=== PATIENT | male | born 1960 ===

== ENCOUNTER 2025-02-01 15:55 | Outpatient (CLI) | payer OTHER, SELFPAY ==
--- NOTE | 2025-02-01 08:15 | DI.RAD_ITS ---
Exam(s) XR PELVIS AP EXAM: XR PELVIS AP CLINICAL HISTORY: LEFT HIP PAIN. TECHNIQUE: 2D digital imaging was performed. COMPARISON: DX HIP/PELVIS from 07/19/2023 FINDINGS: Single AP view: Again noted is a previously described hardware in the left hip acetabulum. This hardware remain stab le no obvious loosening nor evidence of osteomyelitis. However, there has been further advancement of the severe degenerative changes in the left hip joint. There is [id number] narrowing evidence superiorly and increase in number of degenerative subartic ular cysts. Also some increase in dystrophic calcification off the superolateral aspect of the joint . Opposite-right hip appears unremarkable. IMPRESSION: Stable left hip region hardware but advancing now severe osteoarthritic degenerative changes in the l eft hip. DATA REPOSITORY: RADIATION DOSE DELIVERED:
== END 2025-02-01 15:56 | disposition home or self-care (01) ==
LOC: DIORS 15:56
PROVIDERS: PCP Family Medicine; Visit Provider Student in an Organized Health Care Education/Training Program
DX: M16.12 Unilateral primary osteoarthritis, left hip (principal)
CPT/HCPCS: 72170

== ENCOUNTER 2025-04-09 04:34 | Outpatient (CLI) | payer OTHER, SELFPAY ==
[2025-04-09 12:59] LABS: HCT 47.4 % (40.0-50.0); HGB 15.7 g/dL (13.5-17.5); MCH 32.6 pg (27.0-33.0); MCHC 33.1 % (32.0-36.0); MCV 99 fL (80-95); MPV 8.8 fL (8.0-11.0); Platelet Count 229 10^3/uL (130-400); RBC 4.81 10^6/uL (4.36-5.78); WBC 6.96 10^3/uL (4.4-10.8)
[2025-04-09 13:42] LABS: Anion Gap 5.6 mmol/L (3-11); BUN 17 mg/dL (7-18); CO2 29.4 mmol/L (21.0-32.0); Calcium 9.2 mg/dL (8.5-10.1); Chloride 104 mmol/L (98-107); Glucose 78 mg/dL (74-106); Potassium 4.5 mmol/L (3.5-5.1); Sodium 139 mmol/L (136-145)
== END 2025-04-09 04:35 | disposition home or self-care (01) ==
LOC: LBO 04:34
PROVIDERS: PCP Family Medicine; Visit Provider Student in an Organized Health Care Education/Training Program
DX: M12.552 Traumatic arthropathy, left hip (principal); Z01.818 Encounter for other preprocedural examination
CPT/HCPCS: 36415; 80048; 85027

== ENCOUNTER 2025-04-17 05:55 | Day surgery (SDC) | payer OTHER, SELFPAY ==
[2025-04-17] VITALS (13 sets, daily range): BP systolic 91–138; BP diastolic 61–96; PULSE 59–70; RESP 14–18; TEMP 36–36.8; O2SAT 95–99; BMI 32.7
--- NOTE | 2025-04-17 06:35 | W.ANESPRE ---
General Info Date of Service Date Performed: 04/17/25 Height: 5 ft 11 in Weight: 106.5 kg Body Mass Index (BMI): 32.7 Surgical Procedure: Operation Date: 04/17/25 07:50 Proposed Procedure Side Surgeon p Hip Total Hip Anterior, ACTIS* Left Von Muhammad MD Meds Allergies and Home Medications Allergies Allergy/AdvReac Type Severity Reaction Status Date / Time cat dander Allergy Unknown Other (See Verified 04/17/25 06:25 Comment) dog dander Allergy Unknown Other (See Verified 04/17/25 06:25 Comment) Home Medication ?Medication ?Instructions ?Recorded acetaminophen 500 mg tablet 1,000 mg PO Q6H PRN 04/19/24 apixaban 5 mg tablet (Eliquis) 5 mg PO BID 04/19/24 ascorbate calcium (vitamin C) 500 500 mg PO DAILY 04/19/24 mg tablet cholecalciferol (vitamin D3) 10 10 mcg PO DAILY 04/19/24 mcg (400 unit) capsule folic acid 1 mg tablet 1 mg PO DAILY 04/19/24 hydroxyzine HCl 25 mg tablet 25 mg PO TID PRN 04/19/24 magnesium 250 mg tablet 250 mg PO DAILY 04/19/24 methotrexate (PF) 25 mg/0.5 mL 50 mg subcut QWEEK 04/19/24 subcutaneous auto-injector metoprolol succinate 50 mg 50 mg PO DAILY 04/19/24 tablet,extended release 24 hr (Toprol XL) multivitamin 1 tab PO DAILY 04/19/24 moringa 04/17/25 Current Visit Medications: Current Medications Generic Name Dose Route Start Last Admin Trade Name Christiane PRN Reason Stop Dose Admin Acetaminophen 1,000 mg 04/17/25 06:00 Acetaminophen 500 Mg Tab PO 04/17/25 23:59 PREOP YOGI Celecoxib 400 mg 04/17/25 06:00 Celecoxib 200 Mg Cap PO 04/17/25 23:59 PREOP YOGI Ringer's Solution 1,000 mls @ 80 mls/hr 04/17/25 06:00 IV 04/17/25 23:59 INFUSION YOGI Cefazolin Sodium/Dextrose 2 gm in 50 mls @ 100 mls/hr 04/17/25 06:00 Ancef Duplex IVPB 04/17/25 23:59 PREOP YOGI Tranexamic Acid/Sodium Chloride 1,000 mg in 100 mls @ 600 mls/hr 04/17/25 06:00 IVPB 04/17/25 23:59 PREOP YOGI IV Miscellaneous Supplies 1 each 04/17/25 06:00 Iv Access IV 04/17/25 23:59 DIRECTED YOGI Sodium Chloride 0 ml 04/17/25 06:00 Normal Saline Flush 10 Ml Syr IV 04/17/25 23:59 PRN PRN Sodium Chloride 0 ml 04/17/25 06:00 Normal Saline 10 Ml Vial IJ 04/17/25 23:59 DIRECTED PRN Sterile Water 0 ml 04/17/25 06:00 Water,Injection,Sterile 10 Ml Vial IJ 04/17/25 23:59 DIRECTED PRN PFSH Active Problems Active Problems: Problem Status Onset Code Traumatic arthritis of left hip Acute M12.552 Osteoarthritis of left hip Acute M16.12 Polymyalgia rheumatica Acute M35.3 Obesity Chronic E66.9 Hypertension Chronic I10 Afib Chronic I48.91 Medical History Medical History History of cardioversion 02/02/25, per pt. states followed up with senior data integration developer 04/14/25 Surgical History Surgical History History of cardiac radiofrequency ablation 2010-Pt. states he is getting another one on 05/2025 Hx of carpal tunnel repair Tobacco Smoking/Tobacco Use Status: Former Tobacco Use Passive smoking exposure: No Alcohol Alcohol Intake: current Alcohol intake frequency: a few times a week Alcohol type: beer Substance Use Substance use: Occasionally Substance use type: does not use and marijuana Details: edibles Vital Signs and Lab Results Lab Results Blood Type / Crossmatch: No Data to Display Complete Blood Count: White Blood Count 6.96 10^3/uL (4.4-10.8) 04/09/25 12:25 Red Blood Count 4.81 10^6/uL (4.36-5.78) 04/09/25 12:25 Hemoglobin 15.7 g/dL (13.5-17.5) 04/09/25 12:25 Hematocrit 47.4 % (40.0-50.0) 04/09/25 12:25 Platelet Count 229 10^3/uL (130-400) 04/09/25 12:25 Complete Metabolic Panel: Sodium 139 mmol/L (136-145) 04/09/25 12:25 Potassium 4.5 mmol/L (3.5-5.1) 04/09/25 12:25 Chloride 104 mmol/L (98-107) 04/09/25 12:25 Carbon Dioxide 29.4 mmol/L (21.0-32.0) 04/09/25 12:25 BUN 17 mg/dL (7-18) 04/09/25 12:25 Creatinine 1.0 mg/dL (0.70-1.30) 04/09/25 12:25 Est GFR (CKD-EPI 2020) 85.10 (mL/min/1.73m2) 04/09/25 12:25 Calcium 9.2 mg/dL (8.5-10.1) 04/09/25 12:25 Glucose 78 mg/dL (74-106) 04/09/25 12:25 Liver Function Panel: No Data to Display Coagulation Panel: No Data to Display Cardiac Panel: No Data to Display Arterial Blood Gas: No Data to Display Venous Blood Gas: No Data to Display Pancreas Panel: No Data to Display Thyroid Panel: No Data to Display Infectious Disease: No Data to Display Blood Cultures: No Data to Display Toxicology Panel: No Data to Display Anesthesia Assessment and Plan Anesthesia History Personal History: No History of Anesthesia Complications Family History: No Family History of Anesthesia Complications Exercise Tolerance Exercise Tolerance: Metabolic Equivalents>4 Pertinent Negatives Pertinent Negatives: No Symptoms of GERD, No Major Pulmonary Symptoms or Complaints and No History of CVA/TIA Cardiac & Pulmonary Exam Cardiac Exam: Normal S1/S2 Heart Sounds Pulmonary Exam: Clear Bilateral Breath Sounds and No cough or Cold Implantable Cardiac Device Does patient have a Pacemaker or an ICD?: No Airway Exam Known Difficult Airway: No Mallampati Class: 2 Mouth Opening: Normal (> 3cm) Thyromental Distance: Greater than 3 cm Neck Range of Motion: Limited ROM Neck Circumference: Normal Teeth Condition: Normal Dentition Airway Comments: Exposed root #[id number] ASA Classification ASA Score: ASA 2 Emergency Case?: No NPO Status NPO Status: NPO Clears >2 hours, Solids >8 hours Anesthesia Plan Resuscitation Status: Full Code Anesthesia Technique: Spinal Anesthesia Airway Planned: Natural Airway Pain Management: Intrathecal Analgesia Monitors Used: Standard Monitors
[2025-04-17] MEDS: Acetaminophen 500 MG TAB 1000 MG PO (06:39)
[2025-04-17] MEDS: Celecoxib 200 MG CAP 400 MG PO (06:39)
--- NOTE | 2025-04-17 07:11 | PDOC.DSDIS_ITS ---
Date of service: 04/17/25 Discharge Plan Disposition Patient Disposition: Home Condition: Good Discharge Details Reason For Visit: Left hip DJD Attending Provider: Von Muhammad Primary Care Provider: JOHN HAMILTON Home Meds and New Rx's Prescriptions: New acetaminophen 500 mg tablet 1,000 mg PO Q8H PRN Qty: 90 0RF Rx Instructions: Take two tablets up to every 8 hours as needed for pain celecoxib [Celebrex] 200 mg capsule 200 mg PO BID PRNQty: 60 0RF Rx Instructions: Take one tablet twice daily for pain and inflammation docusate sodium [Colace] 100 mg capsule 100 mg PO BID Qty: 28 0RF pantoprazole 40 mg tablet,delayed release (DR/EC) 40 mg PO DAILY Qty: 14 0RF dexamethasone 4 mg tablet 4 mg PO DAILY Qty: 2 0RF Rx Instructions: Take one tablet once daily for two days oxycodone 5 mg tablet 5 mg PO Q6H PRNQty: 12 0RF Rx Instructions: Take one tablet up to every 6 hours as needed for severe postoperative pain Continued cholecalciferol (vitamin D3) 10 mcg (400 unit) capsule 10 mcg PO DAILY folic acid 1 mg tablet 1 mg PO DAILY methotrexate (PF) 25 mg/0.5 mL auto-injector 50 mg subcut QWEEK Eliquis 5 mg tablet 5 mg PO BID multivitamin Tablet 1 tab PO DAILY metoprolol succinate [Toprol XL] 50 mg tablet extended release 24 hr 50 mg PO DAILY ascorbate calcium (vitamin C) 500 mg tablet 500 mg PO DAILY magnesium 250 mg tablet 250 mg PO DAILY hydroxyzine HCl 25 mg tablet 25 mg PO TID PRN moringa Discontinued acetaminophen 500 mg tablet 1,000 mg PO Q6H PRN Discharge Instructions Additional Instructions: Total Hip Discharge Instructions Activity: The most important activity is to walk. You should try to take short walks a few times a day. You have no restrictions on movement or positioning, but do not try to force what you do. You will find some stiffness and weakness with hip flexion (lifting your knee). Do not try to strengthen this too early, continue to practice walking and stairs and this will come. - Outpatient physical therapy can be helpful to help return you to a normal gait and improve your flexibility and strength. This can start around 2 weeks. For some patients, it?s not necessary. Usually this is determined at the time of discharge or at the first post-operative visit. - You should wear the EVETTE hose on both legs for 2 weeks. Dressing: Keep the surgical dressing in place for at least one week. After the first week it may be removed and replace with light gauze and tape or nothing. It may get wet after 3 days but avoid soaking the dressing. If it gets wet, just lightly pat dry. It is important to always keep some gauze between skin folds, especially when you are sitting. Spend some time with the wound exposed when you are lying flat as the incision does wrinkle onto itself. Medications: - You should take Tylenol and an anti-inflammatory Celebrex as your primary pain control medications. If the Celebrex is too expensive or not covered, please call the office for another alternative (Advil/Ibuprofen or Naproxen/Aleve). - You have been prescribed a stronger pain medication Oxycodone for breakthrough pain, take as needed as prescribed. - You have also been prescribed a stomach acid reduction agent Pantoprozole to help reduce stomach acid and reflux. - You have also been prescribed Decadron to help with post-operative nausea and pain. You will take this for two days starting tomorrow. - You will resume your baseline anticoagulation, Apixaban, tomorrow on 04/18/25 for DVT prevention. - If you have constipation you should take Colace (which has been prescribed) or Miralax (which is available [id number]). It takes most people 3-4 days to have a bowel movement. Follow-up: 2 weeks If you have any acute concerns or questions, please do not hesitate to contact the office at [phone]. You may contact Dr. Muhammad with any questions after hours through the hospital at [phone] or on his cell phone at [phone]. Referrals: Von Muhammad MD [ [facility] STAFF PHYSICIAN] - Equipment/Supplies: Walker Activity:: Elevate Remove Dressings/Wound Care:: Do Not Remove Shower/Bathe:: Cover Diet:: As Tolerated Discharge Orders Discharge Orders: Discharge Order (Routine); Ordered 04/17/25 Ordered By: Meghana Ureña
[2025-04-17] MEDS: Lactated Ringers 1,000 ML 80 ML IV (07:15)
--- NOTE | 2025-04-17 08:08 | ROE_ITS ---
Operative Note Operative Note PRE-OP DIAGNOSIS: Left Hip Post-Traumatic Osteoarthritis POST-OP DIAGNOSIS: same PROCEDURE: Left Anterior Total Hip Arthroplasty with Intraoperative Navigation SURGEON: Von Muhammad HI LO DRIVER: Meghana Ureña ANESTHESIA TYPE: Spinal Refer to Anesthesia Record PATHOLOGY: none sent TOURNIQUET TIME: 0 COMPLICATIONS: None Patient was transported to: PACU Patient's condition: stable Implants: 1. Depuy [place] Acetabular Component, 56mm 2. Depuy Acetabular Liner, [id number] 3. Depuy Actis Standard Collared Femoral Stem, Size 6 4. Depuy Altrx Ceramic Femoral Head, Size 36+8.5mm Indications: I have seen Vincent in clinic for symptoms of hip arthritis, confirmed with radiographic findings. Vincent has exhausted nonoperative methods and was having significant limitations in daily function and desired better function and less pain. I discussed the technical details of a hip replacement. I explained the risks of the procedure to include, but not limited to, bleeding, infection, pain, stiffness, fracture, damage to nerves and vessels, damage to muscles and tendons, loosening, instability, leg length inequality, need for repeat procedure, blood clot and cardiopulmonary demise. Despite these risks, he elected to proceed. Findings: There was significant signs of arthritis throughout the hip with large osteophytes throughout and scarring posteriorly. Procedure Description: Vincent was greeted in the preoperative holding area where the correct side was identified and marked. The consent was reviewed with the patient and signed. The history and physical was updated. All questions were answered. Vincent was taken back to the operating room. A spinal anesthestic was then administered. The feet were wrapped with cast padding and Coban and then placed into the boot liners and then into the boots. Care was taken to protect the skin and make sure the heels were fully down and the boots were stable. The patient was then positioned onto the HANA table. Both legs were held in a neutral position. SCDs were applied. The patient was then slid down onto a peroneal post. Prophylactic antibiotics in the form of Cefazolin were administered. 1g of Tranxemic Acid was given intravenously within 30 minutes of incision. The left leg was then prepped with Chloraprep and draped in a standard fashion. A second prep with Chloraprep was performed prior to placement of a shower-curtain type drape with Iodine impregnated skin protection. A timeout to confirm correct identity, side and site, procedure, allergies, anesthesia, and medical concerns was performed. An obliquely oriented incision was made starting lateral to the ASIS and running distal over the Tensor Fascia Odilia (TFL) muscle belly toward the fibular head, approximately 10cm. The skin and soft tissue was dissected sharply, through Stella?s fascia, and to the fascia of the TFL. With the fascia and superior border of the IT band identified, the fascia was incised with a new knife just above any perforators from the IT band. The TFL muscle belly was bluntly dissected away from the fascia and moved laterally. The fat between TFL and rectus was identified to ensure the dissection was not within the TFL. Blunt dissection created space between abductors and the capsule and retractor was placed over the lateral femoral neck. The fibers of the rectus femoris tendon were identified and these were freed from the anterior capsule. A second cobra retractor was placed around the medial femoral neck. The TFL was further retracted laterally to show the deep fascia. Careful dissection through this layer identified three main crossing vessels of the lateral femoral circumflex. These were cauterized in multiple locations and then cut without any noticeable bleeding. The TFL was further released bluntly from the deep fascia to expose anterior hip capsule and fat The soft tissue orthopaedic retractor was then placed beneath the TFL and against sartorius and medial soft tissues to protect and retract the soft tissues. A T-capsulotomy was then performed starting at the superior lateral acetabulum and moving distally to the intertrochanteric ridge. These capsular flaps were tagged with a No. 1 Vicryl and elevated from within. The capsular flaps were released to the shoulder of the lateral neck and to the lesser trochanter to give excellent visualization of the proximal femur. A neck osteotomy was performed using an oscillating saw based on preoperative templates. This cut started in the shoulder and of the lateral neck and exited medially. The saw was at all times directed medially to avoid injury to the greater trochanter. Gross traction was applied to the leg and the osteotomy opened. The femoral head was removed with a corkscrew, making sure to protect the TFL on its exit. Traction was released after head removal. This was measured on the back table to determine the starting reamer size. Portions of the rectus obscuring visualization were minimally elevated off the superior acetabulum. An anterior retractor was placed over the anterior wall between capsule and labrum and attached to the Gripper retraction system. The femur was rotated to 90 degrees and medial capsule was fully released until the lesser trochanter was palpable and visible; the femur was returned to 30 degrees. A posterior retractor was placed similarly between capsule and labrum. This provided excellent visualization. The contents of the cotyloid fossa were removed with electrocautery and the labrum was removed with a knife. There was a notable floor osteophyte. There was significant chondromalacia of the superior acetabulum. Acetabular reaming began with a 52mm reamer. This first reaming was directed anterior to posterior and medial to get down to the true floor. This was inspected and reamed until the true floor was reached. The anterior retractor was then released and entry and exit was provided by traction on the capsular flaps. I then reamed sequentially up to a 56mm reamer where good fit was obtained. The larger reamers were oriented based on anatomical reference of the anterior and lateral cunningham to ensure proper abduction and anteversion. Positioning and size was confirmed with the fluoroscopy. A 56mm Depuy [place] acetabular component was selected. The acetabulum was reamed around the periphery with the selected acetabular size to prevent a rim fit. The deep tissues were irrigated. The acetabular component was then impacted in a position of about 40-45 degrees of abduction and 15-20 degrees of anteversion, using the patient?s anatomy as the ultimate landmark. Fluoroscopy was used to confirm this. There was excellent anthropology professor of the acetabular component and the inserting handle was removed. The acetabular liner, Depuy [id number] polyethylene liner, was inserted and lined up with the tines of the acetabular component. There was no soft tissue interposition. The liner was then impacted into position and confirmed to be well-seated. A portion of the inna-articular cocktail was then injected around the acetabulum into the capsule and periosteum. This cocktail consisted of 123mg of Ropivacaine, 0.25mg of Epinephrine, 0.04mg of Clonidine, and 15mg of K etorolac, diluted to 50cc. The leg was rotated to 120 degrees. Any remaining medial capsule was released until the lesser trochanter was easily palpable. A retractor was placed medially. The lateral capsule was further released into the shoulder to allow access to the greater trochanter. A Cardenas retractor was placed over the greater trochanter which allowed the trochanter to flip in front of the capsule for excellent exposure. The leg was brought down into maximal extension and 20 degrees of adduction while ensuring there was no impingement on the acetabulum. Any remnant capsule within the trochanter was released. Piriformis and obturator externis were identified and protected. There was excellent access to the proximal femur. The lateral neck remnant was removed with a rongeur. A blunt canal probe was used to identify the canal and trajectory for later broaching. A box osteotome initiated the broach course. A small curved rasp and a curved curette were used to work laterally. Broaching then began with a starter Actis broach. This was inserted manually around the trochanter and into the canal before mallet blows. The broach was seated to the neck cut level based on the neck cut and the preoperative template. Sequential broaching was continued with the Fancyse pneumatic broaching device until a tight fit was obtained with good rotational control of the femur. A trial high offset neck was inserted along with a +5 trial head. The leg was brought out of extension and adduction and then reduced with traction and internal rotation. The leg was stable anteriorly in a position of 30 degrees of extension and 90 degrees of external rotation. Fluoroscopy was used to ensure there was no fracture and the stem was seated well. Leg lengths were checked with an AP pelvis and pelvic reference points. [employer] navigation system was used to confirm appropriate positioning and leg length and offset. This seemed to slightly overcorrect the total loss that in under correct leg length. Therefore, the stem was increased to size 6 with a +8.5 head to maintain offset correction and add leg length. Once content with the desired offset and leg lengths, the leg was brought back into extension, external rotation and adduction. The periosteum and surrounding tissue was injected with remaining portion of the inna-articular cocktail. The proximal femur was irrigated as well as the deep tissues. The [employer] Actis standard collared stem, size 6, was then manually inserted into the proximal femur making sure to control rotation. It was then malleted into position with light blows, giving breaks to allow bone expansion and decrease risk of fracture. The selected Depuy Altrx Ceramic Head, size 36+8.5mm, was then placed onto the clean and dry trunnion and secured with impaction onto the tapered fit. The leg was brought back out of extension and adduction and reduced with traction and internal rotation. Stability was confirmed with no shuck at 90 degrees of external rotation and 30 degrees of extension. No impingement through range of motion arc. Final x-ray images were obtained with fluoroscopy to confirm adequate positioning and no intraoperative fracture. The deep tissues were thoroughly irrigated with Surgiphor, betadine solution. This was allowed to sit in the wound for 3 minutes before being thoroughly irrigated out with normal saline. The capsule was then reapproximated with the previously placed sutures and the indirect head of the rectus was inspected and reapproximated with a #1 Vicryl. The TFL fascia was finally closed with a No. 2 Stratafix, barbed suture. Deep tissues were then reapproximated with 0 Vicryl and a running 2-0 Vicryl. The skin was closed with a running 4-0 Monocryl in a subcuticular fashion. This was reinforced with skin glue. A Mepilex silver dressing was applied. At the end of the case, all counts were correct. Vincent was transferred to the hospital bed without difficulty and suffering no apparent complication. He has a good prognosis. Physical therapy will start today and without restrictions, weight-bearing as tolerated. His home dose of Apixaban will be used for DVT prophylaxis. Date of Procedure: 04/17/25
[2025-04-17] MEDS: ceFAZolin 2 GM/50 ML BAG IVPB (08:15)
[2025-04-17] MEDS: TRANEXAMIC ACID/SOD. CHL. 1,000 MG/100 ML BAG 600 MG IVPB (08:20)
--- NOTE | 2025-04-17 09:20 | DI.RAD_ITS ---
Exam(s) XR HIP LT IN OR EXAM: XR HIP LT IN OR CLINICAL HISTORY: (1) Osteoarthritis of left hip. TECHNIQUE: 2D and realtime digital imaging was performed. COMPARISON: CR XR PELVIS AP from 02/01/2025 FINDINGS: Hard copy images show placement of a left hip prosthesis. The alignment appears satisfactory Please see procedure note for details. Fluoro time: 28.4seconds RADIATION DOSE DELIVERED: Ka,r=4.3 mGy
[2025-04-17] MEDS: fentaNYL 100 MCG/2 ML VIAL IVP ×2 (10:16→10:26)
[2025-04-17] MEDS: oxyCODONE 5 MG TAB PO (11:16)
[2025-04-17] MEDS: Tranexamic Acid 650 MG TAB 1300 MG PO (11:46)
--- NOTE | 2025-04-17 12:45 | W.ANESPOSTOP ---
Postoperative Evaluation Date, Time and Location Date Performed: 04/17/25 Time Performed: 12:30 Patient Location: Day Surgery Unit Vital Signs Most Recent Imported Vital Signs: Most Recent Vital Signs Temp Pulse Resp BP Pulse Ox 36.3 C L 67 18 121/79 98 04/17/25 11:57 04/17/25 11:57 04/17/25 11:57 04/17/25 11:57 04/17/25 11:57 Pain Score Most Recent Pain Score: Most Recent Pain Score Pain Level 3 04/17/25 11:57 Assessment Mental Status: Awake (Alert & Oriented to Patient Baseline) Airway and Respiratory Function: Patent airway with normal (patient baseline) respiratory exam Cardiovascular Function: Hemodynamically Stable Hydration Status: Adequately Hydrated Nausea & Vomiting: No Nausea or Vomiting Pain: Pain is tolerable per patient Peripheral Nerve Block: Regional nerve block not resolved at time of post operative discharge Teaching Patient Teaching: Discussed Safe Use of Pain Medication Given Recent Anesthesia and Discussed Safe Use of Pain Medication Given Likely or Known ALISSON
--- NOTE | 2025-04-17 13:04 | PT.INIE ---
PT Notes Visit Reasons: Left hip DJD Physical Therapy Day Surgery Initial Evaluation Date: 04/17/2025 Referring Doctor: Meghana Ureña NUCLEAR CARDIOLOGY TECHNOLOGIST, Dr Muhammad PT Orders: PT CONSULT: s/p Ortho surgery Precautions: WBAT LLE Patient Profile/Admitting Diagnosis: Pt is a 64 yo male presenting s/p elective Left YOLIE under spinal anesthetic. Post op uncomplicated. PMHX: HTN, Traumatic arthritis left hip , OA, PMR, obesity, Afib, Social History/Home Situation: Patient resides in two-story home with his . Patient has 2 steps to enter with grab bar on door frame through his garage. Patient has flight of stairs with 2 rails to his bedroom. 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 He is independent with ADLs, finances, meal prep, driving, shopping. able to help as needed Equipment Owned/DME: Crutches, patient issued and fitted for FWW provided by [employer] Subjective: Patient reports he is feeling well asking about using his riding tractor. Patient educated to follow-up with MD in 2 weeks to discuss use of riding tractor. Objective: [] General Observation: Male semireclined on stretcher with ice to left hip present Mental Status: Alert and oriented x 4, cooperative, able to follow directions, agreeable to participate Pain: Initially 3/10, reduced to 2/10 after ambulation ROM: [] BUE: WNL Right Lower Extremity: WNL Left Lower Extremity: Hip flexion 0 to 92 degrees, abduction 0 to 10 degrees, internal rotation to neutral, knee WNL, ankle dorsiflexion to neutral Strength: [] Right Upper Extremity: 5/5 Left Upper Extremity: 5/5 Right Lower Extremity: 5/5 Left Lower Extremity:Hip flexion: 3 -/5; hip abduction: 3 -/5; hip extension: 3 -/5; knee extension: >/= to 3/5; knee flexion: >/= to 3/5 ankle DF: >/= to 3/5 ; ankle PF: >/= to 3/5 Sensation: Intact Bed Mobility/Transfers: [] Supine to sit independent Sit to stand supervision with cues for hand placement Stand to sit supervision with cues for hand placement Bed to chair supervision with FWW Gait: SBA with FWW 150 feet including turns on level surfaces and obstacle management. Patient initially demonstrating circumduction of left lower extremity to advance after approximately 25 feet patient able to initiate left lower extremity swing phase with hip flexion. Stairs: 5 steps x 2 with bilateral rail SBA with cues for sequencing step to pattern Balance: [] Static Sitting: Normal Dynamic Sitting: Good minus Static Standing: Good Dynamic Standing: Fair plus Special Tests: [] Mobility Limitations Standardized Measure [] [facility] AM-PAC 6 clicks Basic Mobility Inpatient Short Form: [] Raw Score: 21 CMS Score: 28.97% Informed Consent/Education: Patient instructed in purpose of PT consult. Patient education provided for benefits of utilizing FWW versus crutches at this time. 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 Treatment: 00679 Packet containing YOLIE exercise protocol has been given to patient. Education and training on initial set of exercises that can be done at home have been completed with patient. [id number] functional mobility training including sit to stand from various surfaces with bilateral upper extremities pushing up from surface versus from toilet 1 upper extremity on toilet seat when hand on middle of walker. present and able to provide cueing as needed for hand placement Simulated car transfer with technique to lower backrest to allow for clearance if patient having increased pain. Stair training with use of FWW to exit home down 2 stairs with walker at bottom of stairs. Patient participated in simulation of entering home with use of grab bar on the right side at door frame. This was accomplished via use of right hand rail high on stairs step to pattern contact-guard assist and cues for sequencing. Assessment: Patient is a 64-year-old male who presents with clinical signs and symptoms consistent with current/admitting diagnoses that have resulted to mobility limitations, gait instability, generalized weakness, and impairment of motor control as demonstrated by the following impairment level findings: 1. Decreased strength to left LE major muscle groups 2. Impaired standing balance 3. Limitation of joint range of motion in left hip 4. Impaired functional activity tolerance Impairments are contributing to the following functional limitations: 1. Inability to safely ambulate without assistive device 2. Increase completion time for mobility ADL performance 3. Increased fall risk 4. Difficulty performing stairs safely without assistance Patient is assessed as a low complexity based on the following: History: 64-year-old male with impairment level findings, functional limitations, and past medical history as indicated above Examination: Demonstrable impairment in strength, balance, and mobility level with underlying impairments and functional limitations as documented above Presentation:stable Decision Making: low Goals: N/A. PT evaluation and 1-2 treatment sessions only for functional mobility training using recommended AD and for HEP instruction. Plan of Care/Treatment Plan: N/A. PT evaluation and 1-2 treatment session only for functional mobility training using recommended AD and for HEP instruction. DISCHARGE RECOMMENDATIONS:Home with HEP until Ortho Follow up then Outpatient PT for strengthening and return to work conditioning TREATMENT CODE/TIME: 57157, 36396,[id number]/ [id number] Thank you for the opportunity to participate in the care of this patient. Tracie Carter PT [facility]
== END 2025-04-17 13:44 | disposition home or self-care (01) ==
PROVIDERS: PCP Family Medicine; Visit Provider Student in an Organized Health Care Education/Training Program
PROC: (CPT 27130; principal; 2025-04-17 07:30)
DX: M16.52 Unilateral post-traumatic osteoarthritis, left hip (principal)
CPT/HCPCS: 27130; 20985; 97110; 97161; 97530; 73501; C1776; J0690; J1100; J2003; J2250; J2401; J2405; J2704; J3010

== ENCOUNTER 2025-04-30 14:36 | Outpatient (CLI) | payer OTHER, SELFPAY ==
--- NOTE | 2025-04-30 14:29 | DI.RAD_ITS ---
Exam(s) XR HIP LT COMPLETE AP PELVIS EXAM: XR HIP LT COMPLETE AP PELVIS CLINICAL HISTORY: 1st post op S/P L YOLIE. TECHNIQUE: 2D digital imaging was performed. COMPARISON: CR XR PELVIS AP from 02/01/2025 02/01/25. Also images [id number] FINDINGS: There is satisfactory position alignment of the components of the recently placed left hip prosthesis (which was placed on 04/17/2025). No fracture or loosening evident. Also again noted is the ipsilateral acetabular plate hardware which appears stable. There is no hard hein fracture or loosening. No evidence of osteomyelitis. Again noted are some degenerative subarticular cyst in the superior acetabulum and some dystrophic ca lcification off the superolateral aspect of the left hip. The opposite-right hip remains unremarkable. IMPRESSION: Stable satisfactory appearance of the recently placed left hip arthroplasty components. Also stable position of the other left hip acetabular hardware. DATA REPOSITORY: RADIATION DOSE DELIVERED:
== END 2025-04-30 14:37 | disposition home or self-care (01) ==
LOC: DIORS 14:36
PROVIDERS: PCP Family Medicine; Referring Provider Family Medicine; Visit Provider Student in an Organized Health Care Education/Training Program
DX: Z96.642 Presence of left artificial hip joint (principal)
CPT/HCPCS: 73502